=== PATIENT | female | born 1980 | race Caucasian/White ===

== ENCOUNTER 2023-08-27 07:33 | Day surgery (SDC) | payer OTHER ==
[2023-08-27] MEDS ORDERED: Acetaminophen 500 MG TAB ONE (07:51)
[2023-08-27] MEDS ORDERED: Acetaminophen 500 MG TAB PO SCH (08:00)
[2023-08-27] MEDS ORDERED: Iron Sucrose Complex 500 MG in Sodium Chloride 0.9% 250 ML 250 ML IVPB SCH (08:00)
== END 2023-08-27 08:26 | disposition short-term general hospital (02) ==
LOC: CSHSDC 07:33
PROVIDERS: ATTEND Student in an Organized Health Care Education/Training Program
DX: O99.019 Anemia complicating pregnancy, unspecified trimester (principal); Z3A.00 Weeks of gestation of pregnancy not specified
CPT/HCPCS: J1756; J7050

== ENCOUNTER 2023-08-27 08:31 | Inpatient (IN) | payer OTHER ==
[2023-08-27 08:57] VITALS: BMI 34.3
[2023-08-27] MEDS ORDERED: Ondansetron PF 4 MG/2 ML Vial IVP PRN (09:42)
[2023-08-27] MEDS ORDERED: Tranexamic Acid 1,000 MG/10 ML VIAL IVP PRN (09:42)
[2023-08-27] MEDS ORDERED: hydrALAZINE 20 MG/ML VIAL SLOW IVP PRN ×2 (09:42→11:36)
[2023-08-27] MEDS ORDERED: Diphenoxylate HCl/Atropine Tablet PO PRN (09:42)
[2023-08-27] MEDS ORDERED: Promethazine HCl 25 MG/ML VIAL IM PRN (09:42)
[2023-08-27] MEDS ORDERED: Lidocaine 1% (PF) 30 ML VIAL SC PRN ×2 (09:42→10:17)
[2023-08-27] MEDS ORDERED: Misoprostol 200 MCG TAB PR PRN (09:42)
[2023-08-27] MEDS ORDERED: Carboprost 250 MCG/ML AMP IM PRN (09:42)
[2023-08-27] MEDS: hydrALAZINE 20 MG/ML VIAL SLOW IVP PRN (09:42)
[2023-08-27] MEDS ORDERED: Oxytocin 30 units/NS 500 ML 500 ML IV SCH ×3 (09:45)
[2023-08-27] MEDS ORDERED: Lorazepam 2 MG/ML VIAL SLOW IVP PRN (09:46)
[2023-08-27] MEDS ORDERED: Calcium Gluc 4.6 MEQ/10 ML (100 MG/ML) SLOW IVP PRN (09:46)
[2023-08-27 10:21] LABS: #Basophils 0.03 10x3/uL (0.0-0.2); #Eosinphils 0.11 10x3/uL (0.0-0.5); #Monocytes 0.71 10x3/uL (0.0-1.1); #Neutrophils 6.33 10x3/uL (1.5-8.4); %Basophils 0.3 % (0.0-2.0); %Eosinophils 1.2 % (0.0-6.0); %Lymphocytes 20.1 % (18.0-47.0); %Monocytes 7.8 % (0.0-10.0); %Neutrophils 69.7 % (40.0-75.0); Hematocrit 31.2 % (34.9-44.5); Hemoglobin 10.3 g/dL (12.0-15.5); Mean Corpuscular Hemoglobin 29.6 pg (27.0-33.0); Mean Corpuscular Volume 89.7 fL (81.6-98.3); Mean Platelet Volume 11.2 fL (7.4-10.4); Platelet Count 319 10x3/uL (150-450); RBC Distribution Width 13.8 % (11.5-14.5); Red Blood Cell (RBC) Count 3.48 10x6/uL (3.90-5.03); White Blood Cell (WBC) Count 9.1 10x3/uL (3.5-10.5)
[2023-08-27] MEDS: Magnesium Sulfate 20 gm/500 ml 20 GM/500 ML BAG IVPB SCH (10:23)
[2023-08-27] MEDS: Betamet Acet/Betamet Na Ph 30 MG/5 ML VIAL IM SCH (10:23)
[2023-08-27] MEDS ORDERED: Penicillin G Potassium 5 MILL.UNITS in Sodium Chloride 0.9% 100 ML IVPB SCH (10:30)
[2023-08-27 10:38] LABS: ALT (SGPT) 7 U/L (8-55); AST (SGOT) 10 U/L (5-34); Albumin 2.9 g/dL (3.5-5.0); Alkaline Phosphatase 125 U/L (40-110); Anion Gap 14 mmol/L (10-20); BUN (Urea Nitrogen) 8 mg/dL (7.0-18.7); Bilirubin, Total 0.3 mg/dL (0.2-1.2); Calc. Creatinine Clearance 194 mL/min (70-130); Calcium 8.7 mg/dL (7.8-10.44); Carbon Dioxide 19 mmol/L (22-29); Chloride 108 mmol/L (98-107); Estimated GFR 119; Globulin 3.1 g/dL (2.4-3.5); Glucose 79 mg/dL (70-105); Potassium 3.8 mmol/L (3.5-5.1); Sodium 137 mmol/L (136-145)
[2023-08-27 10:47] LABS: Syphilis Antibody Nonreactive (Nonreactive); Syphilis Antibody Index 0.03 S/CO (<1.00 Non-Reactive)
[2023-08-27 10:49] LABS: HBsAg Index 0.21 S/CO (0-0.99); Hep B Surf Ag - L&D Non-Reactive S/CO (NonReactive)
[2023-08-27] MEDS: hydrALAZINE 20 MG/ML VIAL ONE (11:03)
[2023-08-27] MEDS: Misoprostol 100 MCG TAB VAG SCH (11:04)
[2023-08-27] MEDS: Labetalol HCl 200 MG TAB PO SCH ×2 (11:04→20:45)
[2023-08-27] MEDS ORDERED: Fentanyl 100 MCG/2 ML VIAL SLOW IVP SCH (11:15)
[2023-08-27 11:17] LABS: FFN Internal QC Analyzer PASS (PASS); FFN Internal QC Cassette PASS (PASS); Fetal Fibronectin Negative (Negative)
[2023-08-27 11:24] LABS: Creatinine, Urine 21.25 mg/dL (47-110); Protein, Urine Random Quant Less than 10 mg/dL (1-14)
[2023-08-27] MEDS: fentaNYL 50 mcg/mL 1 mL Vial SLOW IVP PRN (11:46)
[2023-08-27] MEDS ORDERED: Penicillin G 2.5 MILL.units 2.5 MILL.UNITS in Premix 1 BAG IVPB SCH (14:30)
[2023-08-27] MEDS: Acetaminophen 500 MG TAB PO SCH (15:02)
[2023-08-27] MEDS: Lactated Ringer's 1,000 ML IV SCH (15:05)
[2023-08-27] MEDS: diphenhydrAMINE 25 MG CAP PO SCH (17:29)
[2023-08-27] MEDS: Metoclopramide HCl 10 MG TAB PO SCH (17:29)
[2023-08-27] MEDS ORDERED: diphenhydrAMINE 50 MG/ML VIAL IM PRN (20:18)
[2023-08-27] MEDS ORDERED: Metoclopramide HCl 10 MG (2 mL) VIAL IVP PRN (20:18)
[2023-08-27] MEDS: diphenhydrAMINE 50 MG in Sodium Chloride 0.9% 50 ML IVPB SCH (20:36)
[2023-08-27] MEDS: Metoclopramide HCl 10 MG (2 mL) VIAL IVP SCH (20:39)
[2023-08-28 07:52] LABS: Magnesium 5.3 mg/dL (1.6-2.6)
[2023-08-28 13:55] LABS: Group B Streptococcus by PCR DETECTED (NotDetected)
[2023-08-29 04:21] LABS: #Basophils 0.02 10x3/uL (0.0-0.2); #Eosinphils 0.04 10x3/uL (0.0-0.5); #Monocytes 0.84 10x3/uL (0.0-1.1); #Neutrophils 7.38 10x3/uL (1.5-8.4); %Basophils 0.2 % (0.0-2.0); %Eosinophils 0.4 % (0.0-6.0); %Lymphocytes 16.7 % (18.0-47.0); %Monocytes 8.4 % (0.0-10.0); %Neutrophils 73.5 % (40.0-75.0); Hematocrit 26.4 % (34.9-44.5); Hemoglobin 8.6 g/dL (12.0-15.5); Mean Corpuscular HGB CONC 32.6 g/dL (32.0-36.0); Mean Corpuscular Hemoglobin 30.5 pg (27.0-33.0); Mean Corpuscular Volume 93.6 fL (81.6-98.3); Mean Platelet Volume 11.6 fL (7.4-10.4); Platelet Count 286 10x3/uL (150-450); RBC Distribution Width 14.1 % (11.5-14.5); Red Blood Cell (RBC) Count 2.82 10x6/uL (3.90-5.03)
[2023-08-29 04:34] LABS: ALT (SGPT) Less than 7 U/L (8-55); AST (SGOT) 9 U/L (5-34); Albumin 2.4 g/dL (3.5-5.0); Alkaline Phosphatase 93 U/L (40-110); Anion Gap 12 mmol/L (10-20); BUN (Urea Nitrogen) 9 mg/dL (7.0-18.7); Bilirubin, Total 0.2 mg/dL (0.2-1.2); Calc. Creatinine Clearance 174 mL/min (70-130); Calcium 8.1 mg/dL (7.8-10.44); Carbon Dioxide 20 mmol/L (22-29); Chloride 112 mmol/L (98-107); Estimated GFR 116; Globulin 3.1 g/dL (2.4-3.5); Glucose 97 mg/dL (70-105); Potassium 3.8 mmol/L (3.5-5.1); Protein, Total 5.5 g/dL (6.0-8.3); Sodium 140 mmol/L (136-145)
[2023-08-29 07:43] VITALS: BP 129/78; TEMP 98.2
== END 2023-08-29 10:07 | disposition home or self-care (01) | DRG 833 ==
LOC: CSHLD/OP 08:31 → CSHLD 10:40 → CSHANTE 08-28 12:00
PROVIDERS: ADMIT Family Medicine; ATTEND Family Medicine
PROC: 4A1HX4Z Monitoring of Products of Conception, Cardiac Electrical Activity, External Approach (ICD-10-PCS; principal; 2023-08-27)
DX: O14.13 Severe pre-eclampsia, third trimester (principal); Z3A.33 33 weeks gestation of pregnancy; O99.013 Anemia complicating pregnancy, third trimester; O99.824 Streptococcus B carrier state complicating childbirth; D50.9 Iron deficiency anemia, unspecified; O34.211 Maternal care for low transverse scar from previous cesarean delivery
CPT/HCPCS: 36415; 51702; 59025; 76817; 80053; 82570; 82728; 82731; 83735; 84156; 85025; 86780; 86850; 86900; 86901; 87340; 87653; 99285; J0360; J0702; J1200; J1756; J2765; J3010; J3475; J7050; J7120

== ENCOUNTER 2023-09-05 13:12 | Inpatient (IN) | payer OTHER ==
[2023-09-05 13:43] VITALS: BMI 34.0
[2023-09-05] MEDS: Ondansetron PF 4 MG/2 ML Vial IVP SCH (15:01)
[2023-09-05] MEDS: Acetaminophen 500 MG TAB PO SCH (15:01)
[2023-09-05 15:16] LABS: Bilirubin Neg (Negative); Blood, Urine 10 (Negative); Clarity Slightly Cloudy (Clear); Glucose, Urine (Dipstick) Normal (Negative); Ketone, Urine 50 mg/dL (Negative); Leukocyte 500 (Negative); Nitrite Negative (Negative); Protein, Urine (Dipstick) 15 mg/dl (Neg-Trace); Specific Gravity, Urine 1.015 (1.005-1.030); Urobilinogen Normal mg/dL (Less than 2); pH, Urine 6.5 (5.0-9.0)
[2023-09-05] MEDS: Famotidine/PF 20 mg/2ml Vial SLOW IVP SCH (15:32)
[2023-09-05 15:35] LABS: Creatinine, Urine 90.17 mg/dL (47-110)
[2023-09-05 15:47] LABS: #Basophils 0.02 10x3/uL (0.0-0.2); #Eosinphils 0.04 10x3/uL (0.0-0.5); #Monocytes 0.78 10x3/uL (0.0-1.1); #Neutrophils 11.15 10x3/uL (1.5-8.4); %Basophils 0.2 % (0.0-2.0); %Eosinophils 0.3 % (0.0-6.0); %Lymphocytes 9.4 % (18.0-47.0); %Monocytes 5.9 % (0.0-10.0); %Neutrophils 83.7 % (40.0-75.0); Hematocrit 28.8 % (34.9-44.5); Hemoglobin 9.7 g/dL (12.0-15.5); Mean Corpuscular HGB CONC 33.7 g/dL (32.0-36.0); Mean Corpuscular Hemoglobin 30.2 pg (27.0-33.0); Mean Corpuscular Volume 89.7 fL (81.6-98.3); Mean Platelet Volume 11.5 fL (7.4-10.4); Platelet Count 273 10x3/uL (150-450); RBC Distribution Width 14.1 % (11.5-14.5); Red Blood Cell (RBC) Count 3.21 10x6/uL (3.90-5.03); White Blood Cell (WBC) Count 13.3 10x3/uL (3.5-10.5)
[2023-09-05 15:53] LABS: RBC/HPF 0-3 HPF (0-3)
[2023-09-05 15:54] LABS: Bacteria/HPF 2+ HPF (None Seen); CAUTI Indications for Culture Pregnancy; WBC/HPF 0-3 HPF (0-3)
[2023-09-05 15:56] LABS: Urine Culture Reflex Yes Yes
[2023-09-05] MEDS: hydrALAZINE 20 MG/ML VIAL SLOW IVP PRN ×2 (15:56→20:07)
[2023-09-05 15:58] LABS: ALT (SGPT) Less than 7 U/L (8-55); AST (SGOT) 13 U/L (5-34); Albumin 2.7 g/dL (3.5-5.0); Alkaline Phosphatase 119 U/L (40-110); Anion Gap 14 mmol/L (10-20); BUN (Urea Nitrogen) 6 mg/dL (7.0-18.7); Bilirubin, Total 0.4 mg/dL (0.2-1.2); Calc. Creatinine Clearance 188 mL/min (70-130); Carbon Dioxide 20 mmol/L (22-29); Chloride 106 mmol/L (98-107); Estimated GFR 119; Globulin 3.5 g/dL (2.4-3.5); Glucose 88 mg/dL (70-105); Potassium 4.1 mmol/L (3.5-5.1); Protein, Total 6.2 g/dL (6.0-8.3); Sodium 136 mmol/L (136-145)
[2023-09-05] MEDS ORDERED: hydrALAZINE 20 MG/ML VIAL SLOW IVP PRN ×3 (17:00→22:21)
[2023-09-05] MEDS ORDERED: Calcium Gluc 4.6 MEQ/10 ML (100 MG/ML) SLOW IVP PRN ×2 (17:00→20:08)
[2023-09-05] MEDS ORDERED: Ondansetron PF 4 MG/2 ML Vial IVP PRN (17:00)
[2023-09-05] MEDS ORDERED: Diphenoxylate HCl/Atropine Tablet PO PRN (17:00)
[2023-09-05] MEDS ORDERED: Promethazine HCl 25 MG/ML VIAL IM PRN (17:00)
[2023-09-05] MEDS ORDERED: Lactated Ringer's 1,000 ML IV SCH (17:00)
[2023-09-05] MEDS ORDERED: Carboprost 250 MCG/ML AMP IM PRN (17:00)
[2023-09-05] MEDS ORDERED: Misoprostol 200 MCG TAB PR PRN (17:00)
[2023-09-05] MEDS ORDERED: Acetaminophen 500 MG TAB PO PRN (17:00)
[2023-09-05] MEDS ORDERED: Oxytocin 30 units/NS 500 ML 500 ML IV SCH (17:00)
[2023-09-05] MEDS ORDERED: Labetalol HCl 100 MG/20 ML VIAL SLOW IVP PRN ×2 (17:00)
[2023-09-05] MEDS ORDERED: Lorazepam 2 MG/ML VIAL SLOW IVP PRN ×2 (17:00→20:08)
[2023-09-05] MEDS ORDERED: cefTRIAXone\\ROCEPHIN 1 GM in Sodium Chloride 0.9% 100 ML IVPB SCH (17:30)
[2023-09-05 18:17] LABS: Hep B Surf Ag - L&D Non-Reactive S/CO (NonReactive)
[2023-09-05 18:19] LABS: Syphilis Antibody Nonreactive (Nonreactive); Syphilis Antibody Index 0.04 S/CO (<1.00 Non-Reactive)
[2023-09-05] MEDS: Labetalol HCl 200 MG TAB PO SCH (19:20)
[2023-09-05] MEDS ORDERED: Bicitra 30 ML UDCUP PO PRN (20:08)
[2023-09-05] MEDS ORDERED: Famotidine/PF 20 mg/2ml Vial SLOW IVP PRN (20:08)
[2023-09-05] MEDS ORDERED: CEFAZOLIN 2 GM in Sodium Chloride 0.9% 100 ML IVPB SCH (20:15)
[2023-09-05] MEDS: Magnesium Sulfate 20 gm/500 ml 20 GM/500 ML BAG ONE (20:21)
[2023-09-05] MEDS: CEFAZOLIN 2 GM VIAL ONE (20:22)
[2023-09-05] MEDS ORDERED: Methylergonovine 0.2 MG/ML VIAL IM PRN (22:21)
[2023-09-05] MEDS ORDERED: Lanolin Ointment 7 GM TUBE TOP PRN (22:21)
[2023-09-06 04:04] LABS: #Basophils 0.02 10x3/uL (0.0-0.2); #Eosinphils 0.01 10x3/uL (0.0-0.5); #Monocytes 0.84 10x3/uL (0.0-1.1); #Neutrophils 11.66 10x3/uL (1.5-8.4); %Basophils 0.1 % (0.0-2.0); %Eosinophils 0.1 % (0.0-6.0); %Lymphocytes 6.6 % (18.0-47.0); %Monocytes 6.2 % (0.0-10.0); %Neutrophils 86.5 % (40.0-75.0); Hematocrit 24.3 % (34.9-44.5); Hemoglobin 8.1 g/dL (12.0-15.5); Mean Corpuscular HGB CONC 33.3 g/dL (32.0-36.0); Mean Corpuscular Hemoglobin 30.2 pg (27.0-33.0); Mean Corpuscular Volume 90.7 fL (81.6-98.3); Mean Platelet Volume 10.6 fL (7.4-10.4); Platelet Count 273 10x3/uL (150-450); RBC Distribution Width 14.2 % (11.5-14.5); Red Blood Cell (RBC) Count 2.68 10x6/uL (3.90-5.03); White Blood Cell (WBC) Count 13.5 10x3/uL (3.5-10.5)
[2023-09-06 04:16] LABS: ALT (SGPT) 7 U/L (8-55); AST (SGOT) 11 U/L (5-34); Albumin 2.3 g/dL (3.5-5.0); Alkaline Phosphatase 97 U/L (40-110); Anion Gap 14 mmol/L (10-20); BUN (Urea Nitrogen) 5 mg/dL (7.0-18.7); Bilirubin, Total 0.4 mg/dL (0.2-1.2); Calc. Creatinine Clearance 196 mL/min (70-130); Calcium 7.7 mg/dL (7.8-10.44); Carbon Dioxide 18 mmol/L (22-29); Chloride 105 mmol/L (98-107); Estimated GFR 120; Glucose 117 mg/dL (70-105); Potassium 4.1 mmol/L (3.5-5.1); Protein, Total 5.3 g/dL (6.0-8.3); Sodium 133 mmol/L (136-145)
[2023-09-06] MEDS: Magnesium Sulfate 20 gm/500 ml 20 GM/500 ML BAG IVPB SCH (05:13)
[2023-09-06] MEDS ORDERED: Magnesium Sulfate 20 gm/500 ml 20 GM/500 ML BAG IVPB SCH (05:45)
[2023-09-06] MEDS ORDERED: MAGNESIUM SULFATE IVPB SCH (05:45)
[2023-09-06] MEDS: Ibuprofen 800 MG TAB PO SCH (14:32)
[2023-09-06] MEDS: HYDROcodone/Acetaminophen 5/325 mg Tablet PO PRN (21:13)
[2023-09-06] MEDS: Simethicone Chewable 80 MG TAB PO PRN (21:14)
[2023-09-06] MEDS ORDERED: HYDROmorphone 0.5 MG/0.5 ML SYRINGE SLOW IVP PRN (21:45)
[2023-09-06] MEDS: Cyclobenzaprine 10 MG TAB PO SCH (21:51)
[2023-09-06] MEDS: Acetaminophen 325 MG TAB PO SCH (23:22)
[2023-09-07] MEDS: Ondansetron PF 4 MG/2 ML Vial ONE (07:37)
[2023-09-07] MEDS: Lactated Ringer's 1,000 ML IV SCH (07:37)
[2023-09-07] MEDS: Morphine PF 10 MG/10 ML VIAL ONE (07:37)
[2023-09-07] MEDS: Dexamethasone 4 mg/ml Vial ONE (07:37)
[2023-09-07] MEDS: fentaNYL 50 mcg/mL 1 mL Vial ONE (07:37)
[2023-09-07] MEDS: Boostrix 0.5 ML (Tdap) VIAL (>/=7 yrs of age) IM ONE (07:38)
[2023-09-07] MEDS: Tranexamic Acid 1,000 MG/10 ML VIAL ONE (07:38)
[2023-09-07] MEDS: Ketorolac Tromethamine 30 MG (1 mL) VIAL ONE (07:38)
[2023-09-07] MEDS: Oxytocin 10 UNITS/ML VIAL ONE (07:38)
[2023-09-07] MEDS: Phenylephrine 40 MG/NS 250 ML 250 ML ONE (07:38)
[2023-09-07] MEDS: Acetaminophen 325 MG TAB PO SCH (17:21)
[2023-09-07] MEDS: Docusate 100 MG CAP PO SCH (22:01)
[2023-09-08 13:36] VITALS: BP 133/85; TEMP 98
== END 2023-09-08 12:35 | disposition home or self-care (01) | DRG 787 ==
LOC: CSHLD/OP 13:12 → CSHLD 17:00 → CSHPP 09-06 23:00
PROVIDERS: ADMIT Family Medicine; ATTEND Family Medicine
PROC: 10D00Z1 Extraction of Products of Conception, Low, Open Approach (ICD-10-PCS; principal; 2023-09-05)
PROC: 0T9B70Z Drainage of Bladder with Drainage Device, Via Natural or Artificial Opening (ICD-10-PCS; 2023-09-05)
DX: O11.4 Pre-existing hypertension with pre-eclampsia, complicating childbirth (principal); D62 Acute posthemorrhagic anemia; O10.92 Unspecified pre-existing hypertension complicating childbirth; B95.1 Streptococcus, group B, as the cause of diseases classified elsewhere; D50.9 Iron deficiency anemia, unspecified; Z79.82 Long term (current) use of aspirin; Z3A.35 35 weeks gestation of pregnancy; Z37.0 Single live birth; Z79.899 Other long term (current) drug therapy; O34.211 Maternal care for low transverse scar from previous cesarean delivery; O90.81 Anemia of the puerperium
CPT/HCPCS: 36415; 51702; 80053; 81001; 82570; 84156; 85025; 86780; 86850; 86900; 86901; 87086; 87340; 88307; 99285; J0360; J1100; J1885; J2274; J2405; J2590; J3010; J3475; J3490; S0028

== ENCOUNTER 2023-09-11 13:06 | Inpatient (IN) | payer OTHER ==
[2023-09-11] MEDS ORDERED: Labetalol HCl 100 MG/20 ML VIAL ONE (13:20)
[2023-09-11] MEDS ORDERED: Magnesium 2 GM/50 ML BAG (IN WATER) ONE (13:20)
[2023-09-11 13:45] LABS: #Basophils 0.02 10x3/uL (0.0-0.2); #Eosinphils 0.15 10x3/uL (0.0-0.5); #Monocytes 0.62 10x3/uL (0.0-1.1); #Neutrophils 5.15 10x3/uL (1.5-8.4); %Basophils 0.3 % (0.0-2.0); %Eosinophils 1.9 % (0.0-6.0); %Lymphocytes 19.8 % (18.0-47.0); %Neutrophils 66.3 % (40.0-75.0); Hematocrit 23.5 % (34.9-44.5); Hemoglobin 7.8 g/dL (12.0-15.5); Mean Corpuscular HGB CONC 33.2 g/dL (32.0-36.0); Mean Corpuscular Volume 90.4 fL (81.6-98.3); Mean Platelet Volume 10.4 fL (7.4-10.4); Platelet Count 453 10x3/uL (150-450); RBC Distribution Width 14.2 % (11.5-14.5); White Blood Cell (WBC) Count 7.8 10x3/uL (3.5-10.5)
[2023-09-11 13:51] LABS: ALT (SGPT) 11 U/L (8-55); AST (SGOT) 12 U/L (5-34); Albumin 2.5 g/dL (3.5-5.0); Alkaline Phosphatase 108 U/L (40-110); Anion Gap 14 mmol/L (10-20); BUN (Urea Nitrogen) 9 mg/dL (7.0-18.7); Bilirubin, Total 0.5 mg/dL (0.2-1.2); Calc. Creatinine Clearance 0 mL/min (70-130); Calcium 9.4 mg/dL (7.8-10.44); Carbon Dioxide 25 mmol/L (22-29); Chloride 105 mmol/L (98-107); Estimated GFR 115; Globulin 4.1 g/dL (2.4-3.5); Glucose 87 mg/dL (70-105); Lipase 5 U/L (8-78); Magnesium 1.6 mg/dL (1.6-2.6); Potassium 3.6 mmol/L (3.5-5.1); Protein, Total 6.6 g/dL (6.0-8.3); Sodium 140 mmol/L (136-145)
[2023-09-11 14:09] LABS: Troponin I Less than 0.010 ng/mL (< 0.028)
[2023-09-11] MEDS: Labetalol HCl 100 MG/20 ML VIAL ONE (14:45)
[2023-09-11] MEDS: Magnesium Sulfate 20 gm/500 ml 20 GM/500 ML BAG ONE (14:48)
[2023-09-11] MEDS: Labetalol HCl 100 MG/20 ML VIAL SLOW IVP PRN (15:05)
[2023-09-11] MEDS ORDERED: Calcium Gluc 4.6 MEQ/10 ML (100 MG/ML) SLOW IVP PRN (15:08)
[2023-09-11] MEDS ORDERED: Promethazine HCl 25 MG/ML VIAL IM PRN (15:08)
[2023-09-11] MEDS ORDERED: Labetalol HCl 100 MG/20 ML VIAL SLOW IVP PRN ×2 (15:08)
[2023-09-11] MEDS ORDERED: Ondansetron PF 4 MG/2 ML Vial IVP PRN (15:08)
[2023-09-11] MEDS ORDERED: Lorazepam 2 MG/ML VIAL SLOW IVP PRN (15:08)
[2023-09-11] MEDS ORDERED: Docusate 100 MG CAP PO PRN (15:08)
[2023-09-11 15:15] VITALS: BMI 31.8
[2023-09-11] MEDS: hydrALAZINE 20 MG/ML VIAL SLOW IVP PRN ×2 (15:30→15:49)
[2023-09-11] MEDS: Morphine 4 MG/ML VIAL SLOW IVP SCH (15:48)
[2023-09-11] MEDS: Acetaminophen 500 MG TAB PO SCH (17:30)
[2023-09-11 17:42] LABS: Bilirubin Neg (Negative); Blood, Urine Negative (Negative); Clarity Clear (Clear); Glucose, Urine (Dipstick) Normal (Negative); Ketone, Urine Negative (Negative); Leukocyte Negative (Negative); Nitrite Negative (Negative); Protein, Urine (Dipstick) Negative (Neg-Trace); Urobilinogen Normal mg/dL (Less than 2)
[2023-09-11 17:54] LABS: Bacteria/HPF Rare-Few HPF (None Seen); CAUTI Indications for Culture Fever or rigors; RBC/HPF None Seen HPF (0-3); Squamous Epithelial 0-3 HPF (0-3); Urine Culture Reflex No No; WBC/HPF None Seen HPF (0-3)
[2023-09-11] MEDS: diphenhydrAMINE 50 MG/ML VIAL IVP SCH (19:16)
[2023-09-11] MEDS: Metoclopramide HCl 10 MG (2 mL) VIAL IVP SCH (19:17)
[2023-09-11] MEDS: Ketorolac Tromethamine 30 MG (1 mL) VIAL IVP PRN (20:04)
[2023-09-11] MEDS: Zolpidem Tartrate 5 MG TAB PO PRN (23:49)
[2023-09-11] MEDS: Magnesium Sulfate 20 gm/500 ml 20 GM/500 ML BAG IVPB SCH (23:53)
[2023-09-12] MEDS: Furosemide 40 MG (4 mL) VIAL SLOW IVP SCH (04:57)
[2023-09-12] MEDS: Acetaminophen 325 MG TAB PO SCH (08:24)
[2023-09-12] MEDS: NIFEdipine XL 30 MG ER.TAB PO SCH (08:29)
[2023-09-12 10:34] LABS: Hematocrit 24.8 % (34.9-44.5); Hemoglobin 8.3 g/dL (12.0-15.5); Mean Corpuscular HGB CONC 33.5 g/dL (32.0-36.0); Mean Corpuscular Hemoglobin 29.6 pg (27.0-33.0); Mean Corpuscular Volume 88.6 fL (81.6-98.3); Mean Platelet Volume 9.9 fL (7.4-10.4); Platelet Count 466 10x3/uL (150-450); RBC Distribution Width 14.3 % (11.5-14.5)
[2023-09-12 10:52] LABS: ALT (SGPT) 10 U/L (8-55); AST (SGOT) 12 U/L (5-34); Albumin 2.5 g/dL (3.5-5.0); Alkaline Phosphatase 101 U/L (40-110); Anion Gap 17 mmol/L (10-20); BUN (Urea Nitrogen) 7 mg/dL (7.0-18.7); Bilirubin, Total 0.5 mg/dL (0.2-1.2); Calc. Creatinine Clearance 159 mL/min (70-130); Carbon Dioxide 25 mmol/L (22-29); Chloride 98 mmol/L (98-107); Estimated GFR 116; Glucose 96 mg/dL (70-105); Potassium 3.6 mmol/L (3.5-5.1); Protein, Total 6.5 g/dL (6.0-8.3); Sodium 136 mmol/L (136-145)
[2023-09-12 11:07] LABS: Band 1 % (5-11); Eosinophils 1 % (0-10); Lymphocytes 12 % (21-51); Monocytes 6 % (0-10); Reactive Lymphocytes 4 % (0-10)
[2023-09-12 11:09] LABS: Ovalocytes SLIGHT = 2-5 cells (100X) (0-1/hpf); Polychromasia SLIGHT = 2-3 cells (100X) (0-2/hpf)
[2023-09-12 11:11] LABS: Platelet Adequacy Comment Appears Increased; Spherocytes SLIGHT = 1-5 cells (100X) (None Seen); Stomatocytes SLIGHT = 2-5 cells (100X) (0-1/hpf); Vacuoles SLIGHT
[2023-09-12 11:12] LABS: MDiff Complete? YES
[2023-09-12] MEDS: Morphine 4 MG/ML VIAL SLOW IVP SCH (15:15)
[2023-09-12] MEDS: Morphine 4 MG/ML VIAL ONE (20:15)
[2023-09-13] MEDS: NIFEdipine XL 30 MG ER.TAB PO SCH (08:29)
[2023-09-13 09:08] VITALS: BP 134/87; TEMP 98
== END 2023-09-13 11:00 | disposition home or self-care (01) | DRG 776 ==
LOC: CSHERS 13:06 → CSHLD 14:14 → CSHPP 09-12 17:52
PROVIDERS: ADMIT Family Medicine; ATTEND Family Medicine
PROC: 4A1HX4Z Monitoring of Products of Conception, Cardiac Electrical Activity, External Approach (ICD-10-PCS; principal; 2023-09-11)
DX: O14.15 Severe pre-eclampsia, complicating the puerperium (principal); O90.89 Other complications of the puerperium, not elsewhere classified; R07.9 Chest pain, unspecified; R10.11 Right upper quadrant pain
CPT/HCPCS: 36415; 71045; 76705; 78227; 80053; 81001; 83605; 83690; 83735; 83880; 84484; 85025; 93005; 93306; 96365; 96375; 99285; A9537; J0360; J1200; J1885; J1940; J2270; J2765; J3475

== ENCOUNTER 2024-11-22 08:03 | Day surgery (SDC) | payer OTHER ==
[2024-11-22] MEDS ORDERED: hydrALAZINE 20 MG/ML VIAL SLOW IVP PRN (08:28)
[2024-11-22 08:45] VITALS: BMI 34.5
[2024-11-22 08:46] LABS: Glucose, Urine (Dipstick) Normal (Negative); Leukocyte 25 (Negative); Protein, Urine (Dipstick) 30 mg/dl (Neg-Trace); Specific Gravity, Urine 1.020 (1.005-1.030)
[2024-11-22 08:58] LABS: Bacteria/HPF Rare-Few HPF (None Seen); CAUTI Indications for Culture Pregnancy; Mucous/LPF 2+ LPF (<2+); RBC/HPF 0-3 HPF (0-3); WBC/HPF 0-3 HPF (0-3)
[2024-11-22 08:59] LABS: Urine Culture Reflex Yes Yes
== END 2024-11-22 10:38 | disposition home or self-care (01) ==
LOC: CSHLD/OP 08:03
PROVIDERS: ATTEND Family Medicine
DX: O26.853 Spotting complicating pregnancy, third trimester (principal); O09.523 Supervision of elderly multigravida, third trimester; O09.43 Supervision of pregnancy with grand multiparity, third trimester; O34.211 Maternal care for low transverse scar from previous cesarean delivery; O16.3 Unspecified maternal hypertension, third trimester; Z3A.29 29 weeks gestation of pregnancy; Z87.59 Personal history of other complications of pregnancy, childbirth and the puerperium; Z79.899 Other long term (current) drug therapy
CPT/HCPCS: 81001; 87086; 87480; 87510; 87660

== ENCOUNTER 2024-11-25 19:28 | Day surgery (SDC) | payer OTHER ==
[2024-11-25] MEDS ORDERED: hydrALAZINE 20 MG/ML VIAL SLOW IVP PRN (21:32)
[2024-11-25 21:40] VITALS: BMI 34.5
[2024-11-25] MEDS: NIFEdipine XL 30 MG ER.TAB PO SCH (22:18)
[2024-11-25 22:20] VITALS: BP 132/90
[2024-11-25 22:58] LABS: #Basophils Less than 0.03 10x3/uL (0.0-0.2); #Eosinophils 0.08 10x3/uL (0.0-0.5); #Monocytes 0.64 10x3/uL (0.0-1.1); #Neutrophils 7.16 10x3/uL (1.5-8.4); %Basophils 0.2 % (0.0-2.0); %Eosinophils 0.8 % (0.0-6.0); %Lymphocytes 18.6 % (18.0-47.0); %Monocytes 6.5 % (0.0-10.0); %Neutrophils 72.6 % (40.0-75.0); Hematocrit 30.3 % (34.9-44.5); Hemoglobin 9.2 g/dL (12.0-15.5); Mean Corpuscular Hemoglobin 26.1 pg (27.0-33.0); Mean Corpuscular Volume 86.1 fL (81.6-98.3); Platelet Count 277 10x3/uL (150-450); Red Blood Cell (RBC) Count 3.52 10x6/uL (3.90-5.03); White Blood Cell (WBC) Count 9.87 10x3/uL (3.5-10.5)
[2024-11-25 23:29] LABS: ALT (SGPT) Less than 7 U/L (Less than 34); AST (SGOT) 11 U/L (11-34); Albumin 3.0 g/dL (3.1-4.5); Alkaline Phosphatase 112 U/L (40-110); Anion Gap 14 mmol/L (10-20); BUN (Urea Nitrogen) 8 mg/dL (7.0-18.7); Bilirubin, Total 0.3 mg/dL (0.3-1.2); Calc. Creatinine Clearance 205 mL/min (70-130); Calcium 8.7 mg/dL (7.8-10.44); Carbon Dioxide 19 mmol/L (22-29); Chloride 108 mmol/L (98-107); Globulin 3.4 g/dL (2.4-3.5); Glucose 82 mg/dL (70-105); Potassium 3.4 mmol/L (3.5-5.1); Sodium 138 mmol/L (136-145)
[2024-11-25] MEDS: Acetaminophen 500 MG TAB PO SCH (23:41)
[2024-11-25 23:46] LABS: Protein, Urine Random Quant 34.0 mg/dL (1-14)
== END 2024-11-26 00:30 | disposition home or self-care (01) ==
LOC: CSHLD/OP 19:28
PROVIDERS: ATTEND Family Medicine
DX: O99.891 Other specified diseases and conditions complicating pregnancy (principal); N89.8 Other specified noninflammatory disorders of vagina; O47.03 False labor before 37 completed weeks of gestation, third trimester; O09.523 Supervision of elderly multigravida, third trimester; O09.43 Supervision of pregnancy with grand multiparity, third trimester; O16.3 Unspecified maternal hypertension, third trimester; O99.013 Anemia complicating pregnancy, third trimester; O34.211 Maternal care for low transverse scar from previous cesarean delivery; Z3A.30 30 weeks gestation of pregnancy; Z79.82 Long term (current) use of aspirin; Z79.899 Other long term (current) drug therapy
CPT/HCPCS: 80053; 82570; 84156; 85025; 87480; 87510; 87660; 99285

== ENCOUNTER 2024-12-16 14:46 | Observation (INO) | payer OTHER ==
[2024-12-16 15:27] VITALS: BMI 34.3
[2024-12-16] MEDS ORDERED: hydrALAZINE 20 MG/ML VIAL SLOW IVP PRN ×2 (15:29→19:21)
[2024-12-16 16:16] LABS: #Basophils Less than 0.03 10x3/uL (0.0-0.2); #Eosinophils 0.06 10x3/uL (0.0-0.5); #Monocytes 0.51 10x3/uL (0.0-1.1); #Neutrophils 4.77 10x3/uL (1.5-8.4); %Basophils 0.3 % (0.0-2.0); %Eosinophils 0.9 % (0.0-6.0); %Lymphocytes 21.0 % (18.0-47.0); %Monocytes 7.5 % (0.0-10.0); %Neutrophils 69.9 % (40.0-75.0); Hematocrit 31.9 % (34.9-44.5); Hemoglobin 9.9 g/dL (12.0-15.5); Mean Corpuscular Hemoglobin 27.1 pg (27.0-33.0); Mean Corpuscular Volume 87.4 fL (81.6-98.3); Platelet Count 233 10x3/uL (150-450); Red Blood Cell (RBC) Count 3.65 10x6/uL (3.90-5.03); White Blood Cell (WBC) Count 6.82 10x3/uL (3.5-10.5)
[2024-12-16 16:22] LABS: Protein, Urine Random Quant Less than 10 mg/dL (1-14)
[2024-12-16 16:30] LABS: ALT (SGPT) Less than 7 U/L (Less than 34); AST (SGOT) 20 U/L (11-34); Albumin 3.0 g/dL (3.1-4.5); Alkaline Phosphatase 123 U/L (40-110); Anion Gap 12 mmol/L (10-20); BUN (Urea Nitrogen) 4 mg/dL (7.0-18.7); Bilirubin, Total 0.3 mg/dL (0.3-1.2); Calc. Creatinine Clearance 237 mL/min (70-130); Calcium 9.2 mg/dL (7.8-10.44); Carbon Dioxide 22 mmol/L (22-29); Chloride 107 mmol/L (98-107); Globulin 3.6 g/dL (2.4-3.5); Glucose 83 mg/dL (70-105); Potassium 3.6 mmol/L (3.5-5.1); Sodium 137 mmol/L (136-145)
[2024-12-16 16:46] LABS: Glucose, Urine (Dipstick) Negative (Negative); Leukocyte Negative (Negative); Protein, Urine (Dipstick) Negative (Neg-Trace); Specific Gravity, Urine 1.020 (1.005-1.030)
[2024-12-16 16:57] LABS: Bacteria/HPF 1+ HPF (None Seen); CAUTI Indications for Culture Pelvic or flank pain; RBC/HPF 0-3 HPF (0-3); WBC/HPF 0-3 HPF (0-3)
[2024-12-16 16:59] LABS: Mucous/LPF 3+ LPF (<2+)
[2024-12-16 17:00] LABS: Urine Culture Reflex No No
[2024-12-16] MEDS: Acetaminophen 500 MG TAB PO SCH (17:38)
[2024-12-16] MEDS ORDERED: Ondansetron PF 4 MG/2 ML Vial IVP PRN (19:21)
[2024-12-16] MEDS ORDERED: Oxytocin 30 units/NS 500 ML 500 ML IV SCH (19:30)
[2024-12-16] MEDS: NIFEdipine XL 30 MG ER.TAB PO SCH (20:11)
[2024-12-16 22:18] LABS: Syphilis Antibody Index 0.04 S/CO (<1.00 Non-Reactive)
[2024-12-16 22:19] LABS: Hep B Surf Ag - L&D Non-Reactive S/CO (NonReactive)
[2024-12-17 08:28] VITALS: TEMP 98.2
[2024-12-17] MEDS: NIFEdipine XL 60 MG ER.TAB PO SCH (08:32)
[2024-12-17 12:46] VITALS: BP 139/82
== END 2024-12-17 12:35 | disposition home or self-care (01) ==
LOC: CSHLD/OP 14:46 → INTOOBSV 19:30 → CSHLD 19:30 → CSHANTE 20:30
PROVIDERS: ADMIT Emergency Medicine; ATTEND Emergency Medicine
DX: O10.913 Unspecified pre-existing hypertension complicating pregnancy, third trimester (principal); O99.891 Other specified diseases and conditions complicating pregnancy; R10.11 Right upper quadrant pain; O09.523 Supervision of elderly multigravida, third trimester; Z3A.33 33 weeks gestation of pregnancy; Z91.048 Other nonmedicinal substance allergy status; Z79.899 Other long term (current) drug therapy
CPT/HCPCS: 36415; 80053; 81001; 82570; 84156; 85025; 86780; 86850; 86900; 86901; 87340; 99285; G0378

== ENCOUNTER 2025-01-07 15:38 | Inpatient (IN) | payer OTHER ==
[2025-01-07 17:02] LABS: Glucose, Urine (Dipstick) 50 mg/dL (Negative); Leukocyte Negative (Negative); Protein, Urine (Dipstick) Negative (Neg-Trace); Specific Gravity, Urine 1.005 (1.005-1.030)
[2025-01-07 17:07] LABS: #Basophils Less than 0.03 10x3/uL (0.0-0.2); #Eosinophils 0.04 10x3/uL (0.0-0.5); #Monocytes 0.56 10x3/uL (0.0-1.1); #Neutrophils 5.61 10x3/uL (1.5-8.4); %Basophils 0.1 % (0.0-2.0); %Eosinophils 0.5 % (0.0-6.0); %Lymphocytes 20.0 % (18.0-47.0); %Monocytes 7.2 % (0.0-10.0); %Neutrophils 71.8 % (40.0-75.0); Hematocrit 30.5 % (34.9-44.5); Hemoglobin 9.8 g/dL (12.0-15.5); Mean Corpuscular Hemoglobin 27.1 pg (27.0-33.0); Mean Corpuscular Volume 84.3 fL (81.6-98.3); Platelet Count 251 10x3/uL (150-450); Red Blood Cell (RBC) Count 3.62 10x6/uL (3.90-5.03); White Blood Cell (WBC) Count 7.81 10x3/uL (3.5-10.5)
[2025-01-07 17:27] LABS: ALT (SGPT) Less than 4 U/L (Less than 34); AST (SGOT) 18 U/L (11-34); Albumin 2.9 g/dL (3.1-4.5); Alkaline Phosphatase 183 U/L (40-110); Anion Gap 12 mmol/L (10-20); BUN (Urea Nitrogen) 4 mg/dL (7.0-18.7); Bilirubin, Total 0.3 mg/dL (0.3-1.2); Calc. Creatinine Clearance 0 mL/min (70-130); Calcium 8.7 mg/dL (7.8-10.44); Carbon Dioxide 20 mmol/L (22-29); Chloride 107 mmol/L (98-107); Globulin 3.5 g/dL (2.4-3.5); Glucose 116 mg/dL (70-105); Potassium 3.2 mmol/L (3.5-5.1); Sodium 136 mmol/L (136-145)
[2025-01-07 17:58] LABS: Protein, Urine Random Quant Less than 10 mg/dL (1-14)
[2025-01-07 18:06] LABS: Bacteria/HPF Rare-Few HPF (None Seen); CAUTI Indications for Culture Pregnancy; RBC/HPF 0-3 HPF (0-3); WBC/HPF None Seen HPF (0-3)
[2025-01-07 18:08] LABS: Urine Culture Reflex Yes Yes
[2025-01-07] MEDS: Metoclopramide HCl 10 MG (2 mL) VIAL IVP SCH (18:09)
[2025-01-07] MEDS: diphenhydrAMINE 50 MG/ML VIAL IVP SCH (18:12)
[2025-01-07 18:25] VITALS: BMI 35.4
[2025-01-07] MEDS ORDERED: Acetaminophen 500 MG TAB PO PRN (20:46)
[2025-01-07] MEDS ORDERED: Ondansetron PF 4 MG/2 ML Vial IVP PRN (20:46)
[2025-01-07] MEDS ORDERED: hydrALAZINE 20 MG/ML VIAL SLOW IVP PRN (20:46)
[2025-01-07] MEDS: Acetaminophen 500 MG TAB PO SCH (21:07)
[2025-01-07 21:39] LABS: Hematocrit 30.7 % (34.9-44.5); Hemoglobin 9.9 g/dL (12.0-15.5); Mean Corpuscular Hemoglobin 27.2 pg (27.0-33.0); Mean Corpuscular Volume 84.3 fL (81.6-98.3); Platelet Count 268 10x3/uL (150-450); Red Blood Cell (RBC) Count 3.64 10x6/uL (3.90-5.03); White Blood Cell (WBC) Count 7.97 10x3/uL (3.5-10.5)
[2025-01-07 23:44] LABS: Hep B Surf Ag - L&D Non-Reactive S/CO (NonReactive)
[2025-01-07 23:47] LABS: Syphilis Antibody Index 0.06 S/CO (<1.00 Non-Reactive)
[2025-01-08] MEDS: NIFEdipine XL 30 MG ER.TAB PO SCH (08:31)
[2025-01-08] MEDS: hydrALAZINE 20 MG/ML VIAL SLOW IVP PRN (10:18)
[2025-01-08] MEDS: Magnesium Sulfate 20 gm/500 ml 20 GM/500 ML BAG ONE ×2 (10:19→21:29)
[2025-01-08] MEDS ORDERED: Famotidine/PF 20 mg/2ml Vial SLOW IVP PRN (11:08)
[2025-01-08] MEDS ORDERED: Bicitra 30 ML UDCUP PO PRN (11:08)
[2025-01-08] MEDS: CEFAZOLIN 2 GM VIAL ONE (11:09)
[2025-01-08] MEDS ORDERED: Ondansetron PF 4 MG/2 ML Vial IVP PRN (11:29)
[2025-01-08] MEDS ORDERED: Meperidine HCl/PF 25 MG (1 mL) VIAL SLOW IVP PRN (11:29)
[2025-01-08] MEDS ORDERED: Ketorolac Tromethamine 30 MG (1 mL) VIAL IVP SCH (11:30)
[2025-01-08] MEDS ORDERED: Communication Order-Pharmacy FS SCH (11:30)
[2025-01-08] MEDS: Ketorolac Tromethamine 30 MG (1 mL) VIAL IVP PRN (15:25)
[2025-01-08] MEDS: diphenhydrAMINE 50 MG/ML VIAL IVP PRN (15:28)
[2025-01-08] MEDS: Ondansetron PF 4 MG/2 ML Vial IVP PRN (15:28)
[2025-01-08] MEDS ORDERED: Calcium Gluc 4.6 MEQ/10 ML (100 MG/ML) SLOW IVP PRN (19:47)
[2025-01-08] MEDS: Ondansetron PF 4 MG/2 ML Vial ONE (21:28)
[2025-01-08] MEDS: Dexamethasone 10 MG/ML VIAL ONE (21:28)
[2025-01-08] MEDS: PHENYLEPHRINE-NS 100 MCG/ML 10 ML SYRINGE ONE (21:28)
[2025-01-08] MEDS: Oxytocin 10 UNITS/ML VIAL ONE (21:28)
[2025-01-09] MEDS: Magnesium Sulfate 20 gm/500 ml 20 GM/500 ML BAG IVPB SCH (06:22)
[2025-01-09] MEDS ORDERED: Lanolin Ointment 7 GM TUBE TOP PRN (14:45)
[2025-01-09] MEDS ORDERED: hydrALAZINE 20 MG/ML VIAL SLOW IVP PRN (14:45)
[2025-01-09] MEDS ORDERED: Simethicone Chewable 80 MG TAB PO PRN (14:45)
[2025-01-09] MEDS: Boostrix 0.5 ML (Tdap) VIAL (>/=7 yrs of age) IM ONE (14:50)
[2025-01-09] MEDS: Furosemide 40 MG (4 mL) VIAL SLOW IVP SCH (14:51)
[2025-01-09] MEDS: Oxytocin 30 units/NS 500 ML 500 ML ONE (14:52)
[2025-01-09 15:31] LABS: Hematocrit 25.1 % (34.9-44.5); Hemoglobin 7.9 g/dL (12.0-15.5)
[2025-01-09] MEDS: Ibuprofen 800 MG TAB PO SCH (21:20)
[2025-01-09] MEDS: Ferrous Sulfate 325 MG TAB PO SCH (21:20)
[2025-01-10 05:46] LABS: #Basophils Less than 0.03 10x3/uL (0.0-0.2); #Eosinophils 0.04 10x3/uL (0.0-0.5); #Monocytes 0.55 10x3/uL (0.0-1.1); #Neutrophils 4.59 10x3/uL (1.5-8.4); %Basophils 0.1 % (0.0-2.0); %Eosinophils 0.5 % (0.0-6.0); %Lymphocytes 29.2 % (18.0-47.0); %Monocytes 7.5 % (0.0-10.0); %Neutrophils 62.4 % (40.0-75.0); Hematocrit 23.3 % (34.9-44.5); Hemoglobin 7.4 g/dL (12.0-15.5); Mean Corpuscular Hemoglobin 27.5 pg (27.0-33.0); Mean Corpuscular Volume 86.6 fL (81.6-98.3); Platelet Count 230 10x3/uL (150-450); Red Blood Cell (RBC) Count 2.69 10x6/uL (3.90-5.03); White Blood Cell (WBC) Count 7.36 10x3/uL (3.5-10.5)
[2025-01-10] MEDS: NIFEdipine XL 60 MG ER.TAB PO SCH (09:23)
[2025-01-10] MEDS: Acetaminophen 325 MG TAB PO PRN (19:39)
[2025-01-11 07:48] VITALS: BP 120/82; TEMP 98.3
== END 2025-01-11 15:40 | disposition home or self-care (01) | DRG 788 ==
LOC: CSHLD/OP 15:38 → UNDOADMOB 20:52 → INTOOBSV 20:52 → CSHLD 20:52 → OBSVTOIN 01-08 11:00 → INTOOBSV 01-09 08:56 → CSHPP 01-09 14:15 → CSHLD 01-09 14:15
PROVIDERS: ADMIT Obstetrics & Gynecology; ATTEND Obstetrics & Gynecology
PROC: 10D00Z1 Extraction of Products of Conception, Low, Open Approach (ICD-10-PCS; principal; 2025-01-08)
PROC: 4A1HXCZ Monitoring of Products of Conception, Cardiac Rate, External Approach (ICD-10-PCS; 2025-01-08)
PROC: 3E033XZ Introduction of Vasopressor into Peripheral Vein, Percutaneous Approach (ICD-10-PCS; 2025-01-08)
PROC: 3E03329 Introduction of Other Anti-infective into Peripheral Vein, Percutaneous Approach (ICD-10-PCS; 2025-01-08)
PROC: 3E0234Z Introduction of Serum, Toxoid and Vaccine into Muscle, Percutaneous Approach (ICD-10-PCS; 2025-01-09)
DX: O11.4 Pre-existing hypertension with pre-eclampsia, complicating childbirth (principal); O69.81X0 Labor and delivery complicated by cord around neck, without compression, not applicable or unspecified; O34.211 Maternal care for low transverse scar from previous cesarean delivery; O99.02 Anemia complicating childbirth; D50.9 Iron deficiency anemia, unspecified; Z3A.36 36 weeks gestation of pregnancy; Z37.0 Single live birth; Z79.899 Other long term (current) drug therapy; Z91.048 Other nonmedicinal substance allergy status; Z23 Encounter for immunization; Z79.82 Long term (current) use of aspirin; Z98.890 Other specified postprocedural states
CPT/HCPCS: 36415; 51702; 81001; 82570; 84156; 85014; 85018; 85025; 86780; 86850; 86900; 86901; 87086; 87340; 99285; J0360; J1100; J1200; J1885; J2274; J2405; J2590; J2765; J3475; J7120